=== PATIENT | male | born 1945 | race Caucasian/White ===

== ENCOUNTER 2024-01-15 18:04 | Emergency (ER) | payer MEDICARE, SELFPAY ==
[2024-01-15] VITALS (10 sets, daily range): BP systolic 90–122; BP diastolic 57–86; PULSE 62–79; RESP 14–19; TEMP 35.5–36.8; O2SAT 92–97; BMI 30.4
--- NOTE | 2024-01-15 18:27 | EKG12_ITS ---
Test Reason : CP Blood Pressure : / mmHG Vent. Rate : 064 BPM Atrial Rate : 064 BPM P-R Int : 194 ms QRS Dur : 156 ms QT Int : 502 ms P-R-T Axes : 057 032 024 degrees QTc Int : 517 ms Normal sinus rhythm Right bundle branch block Abnormal ECG Confirmed by JAVIER MACEDO, MARLA ([id number]), avid editor KRISTIAN BONNER ([id number]) on 01/17/2024 9:06:13 AM Referred By: Confirmed By:MARLA HERRERA MD
--- NOTE | 2024-01-15 18:30 | RAD_ITS ---
EXAM: XR CHEST, 1 VIEW CLINICAL INDICATION: chest pain TECHNIQUE: Frontal view of the chest. COMPARISON: No relevant prior studies available. FINDINGS: LUNGS AND PLEURAL SPACES: There is minimal airspace disease in both lung bases greater on the left. No pneumothorax. No effusion. HEART: Unremarkable. Cardiac silhouette not enlarged. MEDIASTINUM: Central airways and mediastinal contour are unremarkable. BONES/JOINTS: Unremarkable. No acute fracture. SOFT TISSUES: Unremarkable. RAD/Chest 1 View (Portable) IMPRESSION: Minimal bibasilar airspace disease which may represent atelectasis or early pneumonia. Electronically Signed: Hardeep Hook MD at 19:03 EDT ,
[2024-01-15 18:46] LABS: Absolute Lymphocyte Count 1.32 X10^3/uL (0.83-4.51); Absolute Neutrophil Count 10.4 X10^3/uL (2.0-7.7); Basophil# 0.04 X10^3/uL; Basophil% 0.3 % (0-1); Eosinophil# 0.06 X10^3/uL; Eosinophils% 0.5 % (0-5); Hematocrit 41.8 % (40-54); Hemoglobin 13.8 g/dL (13.0-16.5); Lymphocyte # 1.32 X10^3/ul (0.83-4.51); Lymphocyte % 10.5 % (19-41); Mean Corpuscular Hgb 30.5 pg (27.0-32.0); Mean Corpuscular Volume 92.5 fL (80-94); Mean Platelet Vol. 8.9 fl (6.2-12.0); Monocyte# 0.68 X10^3/uL; Monocyte% 5.4 % (0-10); NRBC Flagged by Analyzer 0 % (0-5); Neutrophil # 10.43 X10^3/uL (2.7-7.7); Neutrophil % 82.9 % (47-70); Platelet Count 226 K/mm3 (150-450); RBC Distribution Width CV 13.4 % (11.6-14.6); RBC Distribution Width SD 46.1 fl (35.1-43.9); Red Blood Count 4.52 M/mm3 (4.6-6.2); White Blood Count 12.6 K/mm3 (4.4-11.0)
[2024-01-15 19:04] LABS: Anion Gap 9 (5-15); BUN 32 mg/dL (7-18); BUN/Creat Ratio 15.6 RATIO (10-20); Calcium,Total 8.9 mg/dL (8.5-10.1); Chloride 107 mmol/L (98-107); Creatinine, Serum 2.05 mg/dL (0.70-1.30); EST Glomerular Filtration Rate 34 mL/min (>60); Est Glom Filt Rate - Afr Amer 41 mL/min (>60); Estimated Creatinine Clearance 40.51 ml/min; Glucose 237 mg/dL (74-106); Potassium 3.2 mmol/L (3.5-5.1); Sodium Level 140 mmol/L (136-145); Troponin-I HS (w/2H Reflex) 6 pg/mL (3.0-78.0)
--- NOTE | 2024-01-15 19:10 | ED.RN ---
1 L NS infused from squad.
--- NOTE | 2024-01-15 19:26 | EDS_ITS ---
HPI History of Present Illness Chief Complaint: Chest Pain Narrative Narrative: 78-year-old male past medical history of atrial fibrillation status post cardioversion, diabetes, hypertension, presents with feelings of lightheadedness and dizziness. He states that he was in a tree [place], hunting, and started not feeling well. He was somewhat lightheaded. He denies chest pain or shortness of breath. He states he got down off the tree stand, then took a nitroglycerin. 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 He denies any abdominal pain, but states he had to get out of the truck and had a few episodes of loose stool, as well as vomiting. He states he feels much better than when he did. He had told the friend that was with him that he did not feel well and that he should call 911. [facility] Medical History Angina at rest Home Medications ?Medication ?Instructions ?Recorded ?Last Taken ?Type amiodarone 200 mg tablet 100 mg PO DAILY 01/15/24 Unknown History atorvastatin 20 mg tablet 10 mg PO QHS 01/15/24 Unknown History colestipol 1 gram tablet 1 g PO BID 01/15/24 Unknown History glimepiride 2 mg tablet 2 mg PO DAILY 01/15/24 Unknown History hydrochlorothiazide 25 mg tablet 25 mg PO QDAY 01/15/24 Unknown History lisinopril 40 mg tablet 40 mg PO QHS 01/15/24 Unknown History metoprolol tartrate 100 mg tablet 100 mg PO DAILY 01/15/24 Unknown History warfarin 2.5 mg tablet 2.5 mg PO SUFRSA 01/15/24 Unknown History warfarin 5 mg tablet 5 mg PO MOTUWETH 01/15/24 Unknown History Allergy/AdvReac Type Severity Reaction Status Date / Time No Known Allergies Allergy Verified 01/15/24 18:05 Social History Smoking Status: Never smoker ROS ROS ED ROS Narrative Constitutional: No fever, no chills. Positive feelings of malaise. HEENT: No sore throat. No neck pain. No loss of vision. No rhinorrhea. Cardiovascular: No chest pain. No palpitations. No pedal edema. Respiratory: No cough, no shortness of breath. Abdominal: No abdominal pain. Positive nausea and vomiting with loose stool after taking nitroglycerin. Genitourinary: No dysuria. No hematuria. Musculoskeletal: No myalgias. No arthralgias. Neurologic: No headaches. Positive dizziness and lightheadedness. Skin: No rash. No change in color. EXAM Physical Exam Narrative Exam Narrative: Afebrile. Vital signs noted. Regular rate and rhythm. Lungs are clear to auscultation bilaterally. Abdomen is soft, nontender without guarding or rebound. Positive bowel sounds. Neurological examination is nonfocal and nonlateralizing, moving all extremities. No pedal edema. Const Vital Signs: 01/15/24 18:06 01/15/24 18:58 01/15/24 19:03 Temperature 98.3 F Temperature Source Oral Pulse Rate 62 79 69 Respiratory Rate 18 14 Blood Pressure 99/64 90/57 L Blood Pressure Mean 75 68 Pulse Ox 94 Oxygen Delivery Method Room Air 01/15/24 19:15 01/15/24 19:30 01/15/24 19:45 Temperature Temperature Source Pulse Rate 71 69 67 Respiratory Rate 19 H 16 16 Blood Pressure 106/82 H 97/63 Blood Pressure Mean 91 75 Pulse Ox 92 Oxygen Delivery Method Room Air 01/15/24 19:45 01/15/24 20:00 01/15/24 20:01 Temperature Temperature Source Pulse Rate 69 67 Respiratory Rate 14 14 Blood Pressure 101/59 L 112/76 111/68 Blood Pressure Mean 74 88 77 Pulse Ox 95 97 Oxygen Delivery Method Room Air Room Air 01/15/24 21:00 01/15/24 21:51 Temperature Temperature Source Pulse Rate 69 Respiratory Rate 15 Blood Pressure 122/74 H 97/86 H Blood Pressure Mean 90 89 Pulse Ox 95 Oxygen Delivery Method MDM MDM MDM Narrative Medical decision making narrative: Differential diagnosis includes but not limited to pneumonia versus urinary tract infection versus dehydration. He arrives to the emergency department with a soft blood pressure of 99/64. I think this may be secondary to him taking a nitroglycerin, but he states he was having chest pain at all. I do not feel he requires CT imaging of his abdomen or of his head as he has no headache, and he has no abdominal pain. Chest x-ray in 1 view interpreted by myself independently shows no pneumonia or pneumothorax. The radiology report comments on minimal or bibasilar atelectasis versus early pneumonia. Patient states he does not have a fever or cough or any shortness of breath so I doubt pneumonia. I do not feel antibiotics are indicated. He will be bolused lactated ringers as he continues to have a soft blood pressure with 1 reading of 106 systolic currently. I reviewed his laboratory work and he has slightly elevated white count of 12.6 with hemoglobin 13.8, hematocrit 41.8, platelet count normal at 226. Potassium is slightly low at 3.2 which will be replaced orally. BUN is 32 and creatinine 2.05. I was unable to find any prior records to see if this is new for him, or if he has chronic kidney disease. Initial high-sensitivity troponin is 6. Repeat is 6. This is a negative delta troponin. His INR is therapeutic at 2.5. Urinalysis obtained and reviewed and there is no evidence of infection. I do not feel antibiotics are indicated. Upon repeat examination, he states that he feels vastly improved. As he had elevated creatinine and a soft blood pressure initially, he was bolused lactated Ringer's as stated previously, his repeat blood pressure is 126 systolic. He was able to stand up and ambulate. At this point in time, I feel he can be discharged safely home with follow-up. I think that the events after he got down from the tree stand were from him taking nitroglycerin. However, he reiterates that he did not have any chest pain whatsoever. Return instructions to the emergency department were reviewed. Patient is motivated for discharge. Disposition is discharged home in stable condition. History & Record Review Discussion w/independent historian: Patient and Family Additional record(s) reviewed:: No prior records Lab Data Attestation: I reviewed the patient's lab results. Labs: Laboratory Results - last 24 hr 01/15/24 01/15/24 01/15/24 12:15 18:15 20:16 WBC 12.6 H RBC 4.52 L Hgb 13.8 Hct 41.8 MCV 92.5 MCH 30.5 MCHC 33.0 RDW Std Deviation 46.1 H RDW Coeff of [place] 13.4 Plt Count 226 MPV 8.9 Immature Gran % (Auto) 0.400 Neut % (Auto) 82.9 H Lymph % (Auto) 10.5 L [place] % (Auto) 5.4 Eos % (Auto) 0.5 Baso % (Auto) 0.3 Absolute Neuts (auto) 10.4 H Absolute Lymphs (auto) 1.32 Nucleated RBC % 0 PT 26.8 H INR 2.5 Sodium 140 Potassium 3.2 L Chloride 107 Carbon Dioxide 25.0 Anion Gap 9 BUN 32 H Creatinine 2.05 H Estim Creat Clear Calc 40.51 Est GFR (MDRD) Af Amer 41 L Est GFR (MDRD) Non-Af 34 L BUN/Creatinine Ratio 15.6 Glucose 237 H Calcium 8.9 Troponin I High Sens 6 6 Urine Color Urine Clarity Urine pH Ur Specific [place] Urine Protein Urine Glucose (UA) Urine Ketones Urine Occult Blood Urine Nitrite Urine Bilirubin Urine Urobilinogen Ur Leukocyte Esterase Urine RBC Urine WBC Ur Squamous Epith Cells Urine Bacteria Urine Mucus 01/15/24 21:15 WBC RBC Hgb Hct MCV MCH MCHC RDW Std Deviation RDW Coeff of [place] Plt Count MPV Immature Gran % (Auto) Neut % (Auto) Lymph % (Auto) [place] % (Auto) Eos % (Auto) Baso % (Auto) Absolute Neuts (auto) Absolute Lymphs (auto) Nucleated RBC % PT INR Sodium Potassium Chloride Carbon Dioxide Anion Gap BUN Creatinine Estim Creat Clear Calc Est GFR (MDRD) Af Amer Est GFR (MDRD) Non-Af BUN/Creatinine Ratio Glucose Calcium Troponin I High Sens Urine Color Yellow Urine Clarity Clear Urine pH 6.0 Ur Specific [place] 1.015 Urine Protein 30 H Urine Glucose (UA) 100 H Urine Ketones 5 H Urine Occult Blood Negative Urine Nitrite Negative Urine Bilirubin Negative Urine Urobilinogen Normal Ur Leukocyte Esterase 25 H Urine RBC 0 SEEN Urine WBC 0 SEEN Ur Squamous Epith Cells 0 SEEN Urine Bacteria 0 SEEN Urine Mucus 0 SEEN Radiography Diagnostic Testing: Clinical Impression(s) from Imaging Studies Chest X-Ray 01/15/24 18:30 IMPRESSION: Minimal bibasilar airspace disease which may represent atelectasis or early pneumonia. Electronically Signed: Hardeep Hook MD at 19:03 EDT , Discharge Plan Triage Chief Complaint: Chest Pain ED Provider: Brennan Serrano Dx/Rx/DC Orders Clinical Impression: Transient hypotension, Diarrhea, Nausea and vomiting, Malaise, Elevated serum creatinine Instructions: ED Low Blood Pressure, All Causes, ED Vomit Diarrhea [place] Adult Prescriptions: No Action glimepiride 2 mg tablet 2 mg PO DAILY lisinopril 40 mg tablet 40 mg PO QHS warfarin 2.5 mg tablet 2.5 mg PO SUFRSA warfarin 5 mg tablet 5 mg PO MOTUWETH atorvastatin 20 mg tablet 10 mg PO QHS metoprolol tartrate 100 mg tablet 100 mg PO DAILY hydrochlorothiazide 25 mg tablet 25 mg PO QDAY amiodarone 200 mg tablet 100 mg PO DAILY colestipol 1 gram tablet 1 g PO BID Primary Care Provider: Sergio Warner Referrals: Sergio Warner MD [Primary Care Provider] - 1-2 Days if not improving Activity Restrictions/Additional Instructions: Drink plenty of fluids orally. You may need to have your creatinine rechecked by your primary care provider. Return with new or worsening symptoms. Print Language: [place] Disposition Disposition: Home, Self Care
[2024-01-15] MEDS: Lactated Ringers 1,000 ML 999 ML IV (19:47)
[2024-01-15 19:52] LABS: International Normalized Ratio 2.5; Prothrombin Time (Protime)PT. 26.8 SECONDS (11.7-14.9)
[2024-01-15 20:18] LABS: Reflex Troponin-HS? (from REC) Y
[2024-01-15 20:40] LABS: Troponin-I HS 6 pg/mL (3.0-78.0)
[2024-01-15 21:27] LABS: Bacteria 0 SEEN /hpf (None Seen); Mucous, Urine 0 SEEN /hpf (<or=2+); Red Blood Cells-Urine 0 SEEN /hpf (0-5); Squamous Epithelial Cells - UA 0 SEEN /hpf (0-5); White Blood Cells 0 SEEN /hpf (0-5)
[2024-01-15 21:30] LABS: Color, Urine Yellow (Yellow); Glucose, Dipstick 100 mg/dl (Normal); Ketone-Dipstick 5 mg/dl (Negative); Leukocyte Esterase-Dipstick 25 /ul (Negative); Nitrite-Dipstick Negative (Negative); Occult Blood-Urine Negative /ul (Negative); Protein-Dipstick 30 mg/dl (Negative); Specific Gravity, Urine 1.015 (1.002-1.030); Urine Bilirubin Dipstick Negative (Negative); Urine Clarity Clear (Clear); Urine Urobilinogen Normal (Normal)
== END 2024-01-15 21:59 | disposition home or self-care (01) ==
PROVIDERS: Emergency Provider Emergency Medicine; PCP Family Medicine; Visit Provider Emergency Medicine
DX: I95.9 Hypotension, unspecified (principal); I48.91 Unspecified atrial fibrillation; E11.9 Type 2 diabetes mellitus without complications; R11.2 Nausea with vomiting, unspecified; R79.89 Other specified abnormal findings of blood chemistry; R53.81 Other malaise; R19.7 Diarrhea, unspecified; I10 Essential (primary) hypertension; Z79.01 Long term (current) use of anticoagulants; Z79.84 Long term (current) use of oral hypoglycemic drugs; Z79.899 Other long term (current) drug therapy
CPT/HCPCS: 71045; 80048; 81001; 84484; 85025; 85610; 93005; 96360; 96361; 99285; J7120; A4216